=== PATIENT | female | born 2000 | race Caucasian/White ===

== ENCOUNTER 2024-01-19 06:23 | Outpatient (REF) | payer BC, SELFPAY ==
--- NOTE | ~2024-01-19 | US_ITS ---
EXAMINATION: US PELVIS CLINICAL INFORMATION: Irregular menses, last menstrual period January 01, 2024. COMPARISON: None available. TECHNIQUE: Ultrasound of the pelvis is performed using both transabdominal and transvaginal transducers along with Doppler. Transvaginal imaging is performed due to inadequate visualization transabdominally. FINDINGS: The uterus is retroverted and measures 8.1 x 3.6 x 5.2 cm. The endometrium appears to bifurcate towards the fundal aspect of the uterus with endometrial thickness of 5 mm in the right uterine horn and 6 mm in the left uterine horn. Hypoechoic complex material within the endometrial component within the left uterine horn of indeterminate etiology, possibly representing blood products versus other etiology. 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 Small amount of free fluid. Right ovary measures 1.9 x 1.2 x 2.5 cm, volume 3.0 mL. Left ovary measures 2.8 x 1.1 x 1.5 cm, volume 2.5 mL. Bilateral ovaries are grossly unremarkable. 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 Hypoechoic complex material within the endometrial component within the left uterine horn of indeterminate etiology, possibly representing blood products versus other etiology. Small amount of free fluid. Gynecologic consultation and possible additional imaging with MRI recommended for further evaluation. This study was presented today January 19, 2024 for interpretation. Stat results provided at this time as requested by referring provider. Electronically signed by: Socorro Thurston MD 01/19/2024 01:09 PM EDT
== END 2024-01-19 06:24 | disposition home or self-care (01) ==
LOC: HO.UMASIMG 06:23
PROVIDERS: Visit Provider Nurse Practitioner Women's Health
DX: N92.6 Irregular menstruation, unspecified (principal)
CPT/HCPCS: 76830; 76856